=== PATIENT | male | born 1990 | race Caucasian/White ===

== ENCOUNTER 2022-11-23 13:08 | Emergency (ER) | payer SELFPAY ==
[~2022-11-23] VITALS: Ht 175.3 cm; Wt 91.0 kg
[2022-11-23 16:03] VITALS: BP 157/103
== END 2022-11-23 16:06 | disposition home or self-care (01) ==
LOC: ER 13:08
DX: J02.9 Acute pharyngitis, unspecified (principal)
CPT/HCPCS: 70360; 99283